=== PATIENT | female | born 1960 | race Asian ===

== ENCOUNTER 2022-12-22 15:18 | Inpatient (IN) | payer OTHER ==
[~2022-12-22] VITALS: Ht 165.1 cm; Wt 66.8 kg
[2022-12-22 15:20] VITALS: BP_SYST 135
--- NOTE | 2022-12-22 15:22 | NUR ---
Patient to ER bed 04 to gown for evaluation. Side rails up.
--- NOTE | 2022-12-22 15:30 | NUR ---
ER DR. KULKARNI AT THE BEDSIDE EXAMINING PT
[2022-12-22] MEDS ORDERED: dilTIAZem HCL IVP 5 MG/ML VIAL IVP ONE (15:45)
[2022-12-22] MEDS ORDERED: DILTIAZEM HCL 60 MG TABLET PO ONE (15:45)
--- NOTE | 2022-12-22 16:00 | NUR ---
PT MEDICATED ORDERED. PT STATES SHE FEELS WEAK AND JUST HORRIBLE. PT STATES THAT SHE HAS BEEN HAVING SOB FOR APPRO X 2 WEEKS. NOW WITH ABD DISCOMFORT, NAUSEA AND VOMITING
[2022-12-22 16:14] LABS: BASOPHILS % (AUTO) 0.9 % (0.0-2.0); EOSINOPHILS # (AUTO) 0.1 K/uL (0.0-0.4); EOSINOPHILS % (AUTO) 1.2 % (0.0-4.0); HEMATOCRIT 40.9 % (36-48); LYMPHOCYTES # (AUTO) 1.3 K/uL (1.0-5.5); LYMPHOCYTES % (AUTO) 31.6 % (20.5-51.5); MEAN CORPUSCULAR HEMOGLOBIN 33 pg (27-31); MEAN CORPUSCULAR HGB CONC 34 % (32-36); MEAN CORPUSCULAR VOLUME 95 fL (79.0-98.0); MONOCYTES # (AUTO) 0.4 K/uL (0.0-1.0); MONOCYTES % (AUTO) 8.3 % (1.7-9.3); NEUTROPHILS # (AUTO) 2.5 K/uL (1.8-7.7); PLATELET COUNT (AUTO) 182 K/uL (130-430); RED BLOOD CELL COUNT(AUTO) 4.29 MIL/uL (4.2-6.2); RED CELL DISTRIBUTION WIDTH 14.5 % (9.0-15.0); WHITE BLOOD COUNT (AUTO) 4.3 K/uL (4.8-10.8)
[2022-12-22 16:43] LABS: ANION GAP 9 (5-15); CALCIUM 8.9 mg/dL (8.4-11.0); CHLORIDE 106 mmol/L (98-107); CREATININE 1.05 mg/dL (0.55-1.30); GFR AFRICAN AMERICAN 69 mL/min (>90); GLUCOSE 114 mg/dL (70-99); UREA NITROGEN, BLOOD 14 mg/dL (8-21)
[2022-12-22 16:47] LABS: ALANINE AMINOTRANSFERASE 22 U/L (12-78); ALBUMIN 4.1 g/dL (3.4-4.8); ASPARTATE AMINOTRANSFERASE 25 U/L (10-37); TOTAL BILIRUBIN 0.8 mg/dL (0.0-1.0)
--- NOTE | 2022-12-22 17:54 | NUR ---
Admit bed requested Patient will be admitted to care of . Admitted to TELE unit. Diagnosis NEW ONSET A FIB Inpatient (Yes or No) Y Observation (Yes or No) N Orientation concerns or request close to nursing station (Yes or No) N Covid Status N/A On vent or bipap N Isolation requirements N Needs a sitter N From Home (Yes or if No enter name of facility) Y Requires Dialysis (Yes or No) N Med Rec Completed (Yes of No) Y
[2022-12-22] MEDS ORDERED: FENO160 PO (17:55)
--- NOTE | 2022-12-22 17:56 | NUR ---
Medication reconciliation completed with information provided by PATIENT. Any prior medication reconciliation on file was reviewed and corrected.
--- NOTE | 2022-12-22 19:07 | NUR ---
REPORT GIVEN TO HUONG, WILL ASSUME CARE
--- NOTE | 2022-12-22 20:36 | NUR ---
Admission Note Received patient from ER with diagnosis of NEW ONSET AFIB. Initial Plan of Care discussed-patient verbalized understanding. Family at bedside. Oriented to room, call light, pain management and safety.
--- NOTE | 2022-12-22 20:36 | NUR ---
BEDSIDE REPORT GIVEN TO GREGG OF TELE FLOOR, ADMITTING MD MEDEROS THE ACCEPTING, NO DISTRESS NOTED, SWELLING TO BILATERAL ANKES NOTED
[2022-12-22] MEDS: METOPROLOL TARTRATE 25 MG TABLET PO SCH (20:58)
[2022-12-22] MEDS: APIXABAN 2.5 MG TABLET PO SCH (20:59)
[2022-12-22] MEDS: FUROSEMIDE 20 MG/2 ML VIAL IVP SCH (21:00)
[2022-12-22 21:07] VITALS: BP_SYST 142
[2022-12-22] MEDS ORDERED: DILTIAZEM HCL 30 MG TABLET PO SCH (22:00)
--- NOTE | 2022-12-22 23:00 | NUR ---
ROUNDS PATIENT IN BED, RESTING, NO SIGNS OF DISCOMFORT. CHEST RISE AND FALL EVEN BILATERALLY. CALL LIGHT WITH PATIENT. ALL NEEDS MET. WILL MONITOR.
[2022-12-23 00:22] VITALS: BP_SYST 103
--- NOTE | 2022-12-23 03:00 | NUR ---
ROUNDS NO CHANGES FROM PREVIOUS. ALL NEEDS MET. WILL MONITOR.
--- NOTE | 2022-12-23 06:02 | NUR ---
CLOSING NOTE PATIENT IN BED, RESTING. NO S/S OF ACUTE DISTRESS. BREATHING EVEN AND UNLABORED. HOB SLIGHTLY RAISED. IV SITE PATENT, NO SIGNS OF INFILTRATION OR INFECTION NOTED. ALL NEEDS MET THROUGHOUT SHIFT. FALL, SAFETY PRECAUTIONS MAINTAINED THROUGHOUT SHIFT. WILL CONTINUE TO MONITOR UNTIL PATIENT CARE IS ENDORSED TO ONCOMING DAYSHIFT NURSE.
[2022-12-23] MEDS: FUROSEMIDE 20 MG/2 ML VIAL IVP SCH (08:42)
[2022-12-23] MEDS: METOPROLOL TARTRATE 25 MG TABLET PO SCH ×2 (08:42→20:52)
[2022-12-23] MEDS: APIXABAN 2.5 MG TABLET PO SCH ×2 (08:44→20:50)
[2022-12-23 11:12] VITALS: BP_SYST 108
--- NOTE | 2022-12-23 12:21 | NUR ---
CONSULTATION PAGED/CALLED Reason for Consultation: [] AFIB Person Who was Notified: [] JEAN Consulting Physician: [] DR DAVIS Tie In Hand Specialty: [] CARDIO Ordering Physician: [] DR MEDEROS
[2022-12-23] MEDS ORDERED: METO25TA6 PO (12:32)
[2022-12-23] MEDS ORDERED: SPIRONOLACTONE 25 MG TABLET (ALDACTONE) PO ONE (14:00)
--- NOTE | 2022-12-23 14:00 | NUR ---
IV RE-INSERTION: Complaining of pain to IV site. Restarted on left forearm. Successful after 1 attempts.flushed with 10ml normal saline and converted to saline lock. Will observe for any signs of infiltration.
[2022-12-23 15:48] VITALS: BP_SYST 112
[2022-12-23 19:00] VITALS: BP_SYST 123
[2022-12-23 20:00] VITALS: BP_SYST 123
[2022-12-24 00:47] VITALS: BP_SYST 116
[2022-12-24 06:34] LABS: ALBUMIN 3.6 g/dL (3.4-4.8); CALCIUM 8.8 mg/dL (8.4-11.0); CREATININE 1.05 mg/dL (0.55-1.30); TOTAL BILIRUBIN 0.8 mg/dL (0.0-1.0)
[2022-12-24 06:38] LABS: BASOPHILS % (AUTO) 0.7 % (0.0-2.0); EOSINOPHILS # (AUTO) 0.1 K/uL (0.0-0.4); HEMATOCRIT 40.7 % (36-48); HEMOGLOBIN 13.5 g/dL (12.0-16.0); LYMPHOCYTES % (AUTO) 27.1 % (20.5-51.5); MEAN CORPUSCULAR HEMOGLOBIN 31 pg (27-31); MEAN CORPUSCULAR HGB CONC 33 % (32-36); MEAN CORPUSCULAR VOLUME 94 fL (79.0-98.0); MONOCYTES # (AUTO) 0.3 K/uL (0.0-1.0); MONOCYTES % (AUTO) 8.7 % (1.7-9.3); NEUTROPHILS # (AUTO) 2.2 K/uL (1.8-7.7); NEUTROPHILS % (AUTO) 60.5 % (40.0-70.0); PLATELET COUNT (AUTO) 180 K/uL (130-430); RED BLOOD CELL COUNT(AUTO) 4.31 MIL/uL (4.2-6.2); RED CELL DISTRIBUTION WIDTH 14.6 % (9.0-15.0)
--- NOTE | 2022-12-24 07:45 | NUR ---
INITIAL ROUNDS Received pt AAOx4,no s/s resp distress, no c/o shortness of breath,no c/o chest pain or chest pressure, no c/o pain or discomfort. Plan of care for the day reviewed with pt-pt verbalized her understanding. Pain management, disease process, skin and safety discussed-teach back done. Pt hopes to be discharged home today.
[2022-12-24 08:06] VITALS: BP_SYST 122
[2022-12-24] MEDS: APIXABAN 2.5 MG TABLET PO SCH (08:37)
[2022-12-24] MEDS: METOPROLOL TARTRATE 25 MG TABLET PO SCH (08:37)
[2022-12-24] MEDS ORDERED: SPIRONOLACTONE 25 MG TABLET (ALDACTONE) PO SCH (09:00)
[2022-12-24] MEDS ORDERED: FUROSEMIDE 40 MG TABLET PO SCH (09:00)
[2022-12-24 10:38] VITALS: BP_SYST 114
[2022-12-24 11:26] LABS: WHITE BLOOD COUNT (AUTO) 3.7 K/uL (4.8-10.8)
[2022-12-24] MEDS ORDERED: APIX2.5T PO (11:33)
[2022-12-24] MEDS ORDERED: SPIR25TA PO (11:33)
[2022-12-24] MEDS ORDERED: FURO-149 PO (11:33)
[2022-12-24 11:54] VITALS: BP_SYST 114
--- NOTE | 2022-12-24 12:37 | NUR ---
PATIENT DISCHARGED HOME Patient given medication reconciliation form and D/C instructions. Exit Care on AtrialFib, Eliquis,and Lasix explained and provided. Patient verbalized her understanding. MD discussed with patient the results and treatment provided. Ambulatory with steady gait for discharge to home. Patient in stable condition, ID band removed. IV catheter removed, intact and dressing applied, no active bleeding. Rx of Lasix, Eliquis,Aldactone and Lopressor sent via [facility]. All belongings sent with patient. Patient left floor via wheelchair to private vehicle in no distress.
== END 2022-12-24 12:35 | disposition home or self-care (01) | DRG 291 ==
LOC: SED 15:18 → STU 17:49
PROVIDERS: ADMIT Specialist; ATTEND Specialist
DX: I11.0 Hypertensive heart disease with heart failure (principal); I50.31 Acute diastolic (congestive) heart failure; I48.0 Paroxysmal atrial fibrillation; E78.5 Hyperlipidemia, unspecified; I34.0 Nonrheumatic mitral (valve) insufficiency; Z82.3 Family history of stroke; Z98.891 History of uterine scar from previous surgery; Z79.899 Other long term (current) drug therapy
CPT/HCPCS: 36415; 71045; 80053; 80061; 83735; 83880; 84443; 84484; 85025; 93005; 93306; 93971; 99285; G0378; J1940; J3490